=== PATIENT | male | born 1950 | race Caucasian/White ===

== ENCOUNTER → 2018-08-27 | Outpatient (CLI) | payer MEDICARE | END | disposition home or self-care (01) | LOC: SHCH 10:26 | PROVIDERS: ATTEND Internal Medicine Cardiovascular Disease | DX: I42.9 Cardiomyopathy, unspecified (principal) | CPT/HCPCS: 93306 ==

== ENCOUNTER → 2018-10-09 | Outpatient (CLI) | payer MEDICARE | END | disposition home or self-care (01) | LOC: RAH 11:06 | PROVIDERS: ATTEND Orthopaedic Surgery | DX: M75.102 Unspecified rotator cuff tear or rupture of left shoulder, not specified as traumatic (principal) | CPT/HCPCS: 73221 ==

== ENCOUNTER → 2019-01-10 | Outpatient (CLI) | payer MEDICARE | END | disposition home or self-care (01) | LOC: SHCH 13:56 | PROVIDERS: ATTEND Internal Medicine Cardiovascular Disease | DX: I51.7 Cardiomegaly (principal); I34.0 Nonrheumatic mitral (valve) insufficiency | CPT/HCPCS: 93306 ==

== ENCOUNTER → 2020-01-09 | Outpatient (CLI) | payer MEDICARE | END | disposition home or self-care (01) | LOC: SHCH 07:35 | PROVIDERS: ATTEND Internal Medicine Cardiovascular Disease | DX: I82.409 Acute embolism and thrombosis of unspecified deep veins of unspecified lower extremity (principal); R22.42 Localized swelling, mass and lump, left lower limb | CPT/HCPCS: 93971 ==

== ENCOUNTER → 2023-01-17 | Outpatient (CLI) | payer MEDICARE ==
[2023-01-17 13:50] LABS: CREATININE 1.1 mg/dL (0.5-1.5); POTASSIUM 4.6 mmol/L (3.5-5.1)
== END | disposition home or self-care (01) ==
LOC: LAB 08:11
PROVIDERS: ATTEND Internal Medicine Cardiovascular Disease
DX: E78.5 Hyperlipidemia, unspecified (principal)
CPT/HCPCS: 36415; 80048; 80061

== ENCOUNTER → 2023-07-09 | Outpatient (CLI) | payer MEDICARE ==
[2023-07-09 12:43] LABS: CREATININE 0.9 mg/dL (0.5-1.5); POTASSIUM 5.3 mmol/L (3.5-5.1); THYROID STIMULATING HORMONE 10.83 uIU/mL (0.36-3.74)
== END | disposition home or self-care (01) ==
LOC: LAB 09:31
PROVIDERS: ATTEND Internal Medicine Cardiovascular Disease
DX: I25.10 Atherosclerotic heart disease of native coronary artery without angina pectoris (principal); I25.2 Old myocardial infarction; I25.5 Ischemic cardiomyopathy; E78.5 Hyperlipidemia, unspecified; Z79.899 Other long term (current) drug therapy
CPT/HCPCS: 36415; 80048; 84436; 84443; 84479

== ENCOUNTER → 2023-11-08 | Outpatient (CLI) | payer MEDICARE | END | disposition home or self-care (01) | LOC: RAH 12:41 | PROVIDERS: ATTEND Internal Medicine Cardiovascular Disease | DX: I51.7 Cardiomegaly (principal); I26.99 Other pulmonary embolism without acute cor pulmonale | CPT/HCPCS: 93306 ==

== ENCOUNTER → 2024-03-04 | Outpatient (CLI) | payer MEDICARE ==
[2024-03-04 12:07] LABS: BASOPHILS # (AUTO) 0.03 K/uL (0.00-0.20); BASOPHILS % (AUTO) 0.4 % (0.0-5.0); EOSINOPHILS # (AUTO) 0.09 K/uL (0.00-0.70); EOSINOPHILS % (AUTO) 1.1 % (0.0-8.0); IMMATURE GRANULOCYTE ABSOLUTE 0.02 K/uL (0-1); MEAN CORPUSCULAR HEMOGLOBIN 30.7 pg (27.0-33.0); MEAN CORPUSCULAR HGB CONC 32.4 g/dL (32.0-36.0); MEAN CORPUSCULAR VOLUME 94.7 fL (79-99); MONOCYTES # (AUTO) 0.8 K/uL (0.1-1.0); MONOCYTES % (AUTO) 9.4 % (3.0-13.0); NEUTROPHILS # (AUTO) 4.3 K/uL (1.8-7.7); NEUTROPHILS % (AUTO) 51.9 % (40.0-77.0); PLATELET COUNT (AUTO) 247 K/uL (130-400); RED BLOOD CELL COUNT(AUTO) 4.75 MIL/uL (4.50-6.20); WHITE BLOOD COUNT (AUTO) 8.2 K/uL (4.8-10.8)
[2024-03-04 12:25] LABS: CREATININE 0.9 mg/dL (0.5-1.3); POTASSIUM 4.3 mmol/L (3.5-5.1)
== END | disposition home or self-care (01) ==
LOC: LAB 09:48
PROVIDERS: ATTEND Internal Medicine Cardiovascular Disease
DX: I25.5 Ischemic cardiomyopathy (principal); E78.5 Hyperlipidemia, unspecified
CPT/HCPCS: 36415; 80048; 80061; 85025

== ENCOUNTER → 2024-06-11 | Outpatient (CLI) | payer MEDICARE | END | disposition home or self-care (01) | LOC: RAH 15:00 | PROVIDERS: ATTEND Family Medicine | DX: M47.812 Spondylosis without myelopathy or radiculopathy, cervical region (principal); M25.511 Pain in right shoulder; R29.898 Other symptoms and signs involving the musculoskeletal system | CPT/HCPCS: 72050; 73030 ==

== ENCOUNTER → 2024-07-16 | Outpatient (CLI) | payer MEDICARE | END | disposition home or self-care (01) | LOC: RAH 14:00 | PROVIDERS: ATTEND Family Medicine | DX: M19.041 Primary osteoarthritis, right hand (principal); M25.841 Other specified joint disorders, right hand; M21.941 Unspecified acquired deformity of hand, right hand; M79.641 Pain in right hand | CPT/HCPCS: 73130 ==

== ENCOUNTER → 2024-08-15 | Outpatient (CLI) | payer MEDICARE | END | disposition home or self-care (01) | LOC: RAH 12:45 | PROVIDERS: ATTEND Family Medicine | DX: M19.011 Primary osteoarthritis, right shoulder (principal) | CPT/HCPCS: 73221 ==

== ENCOUNTER → 2024-12-16 | Outpatient (CLI) | payer MEDICARE ==
[2024-12-16 12:10] LABS: CHOLESTEROL 152 mg/dL (<200); HDL CHOLESTEROL 50 mg/dL (29-71); LDL DIRECT 80 mg/dL (0-99); TRIGLYCERIDES 85 mg/dL (30-200)
== END | disposition home or self-care (01) ==
LOC: LAB 09:27
PROVIDERS: ATTEND Internal Medicine Cardiovascular Disease
DX: E78.5 Hyperlipidemia, unspecified (principal)
CPT/HCPCS: 36415; 80061

== ENCOUNTER → 2025-10-19 | Outpatient (CLI) | payer MEDICARE ==
[~2025-10-19] MED LIST: ASPI-1005 PO; CHOL200013 PO; CLOP-31 PO; METO25TA3 PO; NITR0.4T50 SL; ROSU40TA88 PO; UBID100C51 PO
--- NOTE | 2025-10-19 22:24 | HMCIMG ---
EXAM: CT SCAN OF THE CHEST WITHOUT CONTRAST Clinical statement: Chronic obstructive pulmonary disease. STUDY PROTOCOL: CT radiation dose protocol was performed in accordance with the principles of ALARA. A multislice CT scan of the chest was done without intravenous contrast. Sections were obtained from the thoracic inlet through the adrenal glands. RADIATION DOSE: CTDIvol 10.50 mGy; DLP 452.40 mGy???cm. CONTRAST: No intravenous contrast administered. COMPARISON: Chest radiograph from 05/20/2025. FINDINGS: Soft tissues: No supraclavicular or axillary lymphadenopathy or chest wall mass is identified. Lungs and large airways: Mild subpleural fibrotic bands are present in the bilateral lower lobes. A subtle peripheral ground-glass opacity is seen in the left lower lobe. No focal consolidation, discrete pulmonary nodule, or endobronchial lesion is identified. Central airways are patent. Pleura: No pleural effusion or pneumothorax is demonstrated. No significant pleural thickening or pleural-based mass is seen. Heart and pericardium: Cardiac size is within normal limits. No pericardial effusion is identified. Aorta: The proximal thoracic aorta measures approximately 37 mm in diameter, at the upper limits of normal. Moderate calcified atherosclerotic change is present in the thoracic aorta. Pulmonary arteries: Main and central pulmonary arteries are normal in caliber. No gross central filling defect is visible on this noncontrast examination. Lymph nodes: No mediastinal or hilar lymph nodes are enlarged by size criteria. Mediastinum and louis: No mediastinal mass is identified. Hilar structures are unremarkable. Chest wall and lower neck: No focal chest wall lesion or fluid collection is seen. Visualized lower neck structures are unremarkable. Bones/joints: Degenerative changes are present in the thoracic spine without acute fracture or destructive osseous lesion. Upper abdomen: A simple-appearing cyst in the upper pole of the right kidney measures approximately 3 cm. Visualized portions of the liver, spleen, and adrenal glands are otherwise unremarkable. Moderate coronary artery calcifications are present. IMPRESSION: * Mild subpleural fibrotic bands in the bilateral lower lobes with a subtle peripheral ground-glass opacity in the left lower lobe. These findings likely reflect chronic fibrotic or scar-related change; however, an early or low-grade inflammatory/infectious process in the left lower lobe cannot be excluded. Correlate with symptoms and inflammatory markers, and consider short-interval follow-up chest CT (or high-resolution CT) if clinical concern persists. * Moderate calcified atherosclerotic disease of the thoracic aorta and coronary arteries. Recommend optimization of cardiovascular risk factors in coordination with the referring clinician. * Compared with the chest radiograph from 05/20/2025, which demonstrated features suggestive of pulmonary venous congestion, the current CT shows no overt pulmonary edema or pleural effusion, indicating interval improvement/resolution of pulmonary venous congestion. * Proximal thoracic aorta measuring 37 mm in diameter, at the upper limits of normal, without CT evidence of thoracic aortic aneurysm. * Incidental simple cyst in the upper pole of the right kidney measuring approximately 3 cm, a benign finding that does not require specific imaging follow-up in the absence of new related symptoms. * Degenerative changes of the thoracic spine without acute osseous abnormality. /Anthony
== END | disposition home or self-care (01) ==
LOC: RAH 12:31
PROVIDERS: ATTEND Internal Medicine
DX: J44.9 Chronic obstructive pulmonary disease, unspecified (principal); R06.02 Shortness of breath; R09.02 Hypoxemia; I70.0 Atherosclerosis of aorta; M47.814 Spondylosis without myelopathy or radiculopathy, thoracic region; I25.10 Atherosclerotic heart disease of native coronary artery without angina pectoris; N28.1 Cyst of kidney, acquired
CPT/HCPCS: 71250